=== PATIENT | male | born 1950 | race Caucasian/White ===

== ENCOUNTER 2017-06-10 09:07 | Outpatient (CLI) | payer OTHER ==
--- NOTE | 2017-06-10 15:02 | Ultrasound Report ---
EXAM: ABDOMEN ULTRASOUND EXAM DATE: 06/10/2017 10:30 AM. CLINICAL HISTORY: Abdominal pain. COMPARISON: None. TECHNIQUE: Real-time scanning was performed with static images obtained. FINDINGS: Liver: Enlarged with diffusely increased hepatic echogenicity 21.1 cm. Main portal vein flow: Hepatop etal. Gallbladder: Normal. No stones, wall thickening, or sonographic Jacques's sign. Biliary System: Common bile duct measures 4.9 mm. No intrahepatic or extrahepatic ductal dilatation. Pancreas: Not visualized due to bowel gas. Kidneys: Right: 10.9 cm longitudinally. Normal. No contour-deforming mass, stones, or hydronephrosis. Left: 11.6 cm longitudinally. Normal. No contour-deforming mass, stones, or hydronephrosis. Punctate echogenic focus of probable artifact in the renal pelvis on longitudinal image 72 which did not shado w or demonstrate twinkle artifact and was not apparent on the later sagittal images or transverse tommy ges. Spleen: 11.1 cm. Normal in size and echotexture. Aorta and Inferior Vena Cava: The proximal and distal aorta are normal caliber measuring 2.7 cm and 2 .2 cm respectively, the mid abdominal aorta cannot be visualized due to bowel gas. There is calcific atherosclerosis present. Visualized portions of the IVC are unremarkable. Other: None. IMPRESSION: 1. No acute abdominal abnormality, specifically no cholelithiasis or evidence of acute cholecystitis. 2. Hepatomegaly with increased hepatic echogenicity, the latter a nonspecific finding that can be see n with any cause of hepatocellular dysfunction, but is most often due to hepatic steatosis. [facility] Referring Provider Line: [phone] SITE ID: [id number]
== END 2017-06-10 09:08 | disposition home or self-care (01) ==
LOC: DI 09:07
PROVIDERS: ATTEND Internal Medicine
DX: R10.11 Right upper quadrant pain (principal); R16.0 Hepatomegaly, not elsewhere classified
CPT/HCPCS: 76700

== ENCOUNTER 2018-04-16 08:06 | Outpatient (CLI) | payer OTHER ==
--- NOTE | 2018-04-16 09:14 | Ultrasound Report ---
Reason: ABNORMAL LIVER FUNCTION TESTS Procedure Date: 04/16/2018 Accession Number: [id number] / [id number] Procedure: US - Abdomen Limited CPT Code: FULL RESULT: EXAM: ABDOMEN ULTRASOUND LIMITED, RUQ EXAM DATE: 04/16/2018 08:41 AM. CLINICAL HISTORY: ABNORMAL LIVER FUNCTION TESTS. COMPARISON: 06/10/2017. TECHNIQUE: Real-time scanning was performed with static images obtained. FINDINGS: Liver: Increased both in size and echotexture. 18.3 cm. Main portal vein flow: Hepatopetal. Gallbladder: Not evaluated Biliary System: CBD measures 4.7 mm. No intrahepatic or extrahepatic ductal dilatation. Other: None. IMPRESSION: Hepatomegaly with increased hepatic echogenicity, likely secondary to fatty infiltration. [facility]
== END 2018-04-16 08:07 | disposition home or self-care (01) ==
LOC: DI 08:06
PROVIDERS: ATTEND Internal Medicine
DX: R16.0 Hepatomegaly, not elsewhere classified (principal)
CPT/HCPCS: 76705

== ENCOUNTER 2019-10-09 14:07 | Outpatient (CLI) | payer OTHER | END 2019-10-09 14:08 | disposition short-term general hospital (02) | LOC: EMS 14:07 | PROVIDERS: ATTEND Surgery | DX: R07.81 Pleurodynia (principal); R05 Cough | CPT/HCPCS: A0425; A0429 ==

== ENCOUNTER 2019-11-15 09:39 | Outpatient (CLI) | payer OTHER ==
[2019-11-15] MEDS ORDERED: IOVERSOL 320 100 ML VIAL IVP ONE ×2 (09:49→10:06)
--- NOTE | 2019-11-15 17:44 | CT Report ---
PROCEDURE: ABDOMEN W/WO INDICATIONS: ENCOUNTER FOR SCREENING FOR MALIGNANT NEOPLASM, SI CONTRAST: IV CONTRAST: Optiray 320 ml: 100 PO CONTRAST: *NO PO CONTRAST TECHNIQUE: Noncontrast 5 mm thick sections acquired from the diaphragms to the symphysis. Then, IV contrast was administered, and portal venous phase imaging was obtained. 5 mm coronal and sagittal reformats were then performed. For radiation dose reduction, the following was used: automated exposure control, adjustment of mA and/or kV according to patient size. COMPARISON: None. FINDINGS: Image quality: Excellent. Lung bases: Lung bases are clear. There is an ill-defined nodule in the extreme left lung base which may potentially represent nodular scarring. However, this is not definite. It measures approximately 9 mm in maximum diameter. Heart size is normal. Adrenal glands: The technique utilized in the study does not utilize 15 minute delayed phase imaging , which is standard for an adrenal protocol CT. However, the nodule seen in the left adrenal has low- density, with a noncontrast Hounsfield measurement of -5, making it highly likely that it is an adren al adenoma. The likelihood that this nodule is an adenoma approaches 100%. This nodule measures 2.1 c m in diameter. Solid organs: Liver and spleen are normal in size and enhancement. Mild hepatic steatosis. Gallblad reynold is unremarkable Biliary system is non dilated. Pancreas enhances normally. Kidneys are normal in size and enhancement. No hydronephrosis or nephrolithiasis. Peritoneum and bowel: Unenhanced bowel loops are normal in caliber and wall thickness. No free flui d or air. Nodes and vessels: No retroperitoneal or mesenteric adenopathy by size criteria. Aorta and inferior vena cava are normal in size. Dense atherosclerotic calcifications of the aorta and iliacs. Miscellaneous: No ventral hernias. Bones: No suspicious bony lesions. No vertebral body compression fractures. IMPRESSION: 1. The 2.1 cm left adrenal nodule is consistent with a benign adrenal adenoma. 2. 0.9 cm pulmonary nodule in the extreme left lung base. 3. Atherosclerosis. Comment: Apparently, prior CTs have evaluated this left lung base pulmonary nodule. These are not mady ilable for comparison. Direct comparison to prior chest CTs is suggested. If no prior chest CT can be obtained, consider chest CT. Reviewed by: Keith Butt MD on 11/15/2019 4:43 PM AKDT Approved by: Keith Butt MD on 11/15/2019 4:43 PM [id number] Station ID: [id number]
== END 2019-11-15 09:40 | disposition home or self-care (01) ==
LOC: DI 09:39
PROVIDERS: ATTEND Internal Medicine
DX: R91.1 Solitary pulmonary nodule (principal); D35.02 Benign neoplasm of left adrenal gland
CPT/HCPCS: 74170; Q9967